=== PATIENT | female | born 1995 | race Caucasian/White ===

== ENCOUNTER → 2017-05-30 | Outpatient (CLI) | payer OTHER ==
[~2017-05-30] MED LIST: ASPI-691 PO; DESV50TA PO; LEVO50TA5 PO; NORG1TAB7 PO; OMEP40CA6 PO; PANT20TA2 PO; TOPI25TA32 PO; VENL75CA PO
[2017-05-30 13:13] LABS: EPI LOT# 5695218
[2017-05-30 13:15] LABS: PATH.CAST-FLAG NOT PRESENT; SPERM-FLAG NOT PRESENT; SRC-FLAG NOT PRESENT; XTAL-FLAG NOT PRESENT; YLC-FLAG NOT PRESENT
[2017-05-30 13:20] LABS: HCT (PFA) 40.3 % (34.6-47.8); HEMATOCRIT 40.5 % (34.6-47.8); HEMOGLOBIN 13.6 g/dL (11.7-16.4); PLATELET (PFA) 208 x10^3/uL (130-400)
[2017-05-30 13:31] LABS: ASPARTATE AMINO TRANSFERASE 13 U/L (15-37); BLOOD UREA NITROGEN 13 mg/dL (7-18)
[2017-05-30 14:52] LABS: EPI CARTRIDGE 133 SECONDS (72-193)
== END | disposition home or self-care (01) ==
LOC: STAR 12:04
PROVIDERS: ATTEND Neurological Surgery
DX: Z01.818 Encounter for other preprocedural examination (principal); G93.5 Compression of brain; R79.1 Abnormal coagulation profile; R82.99 Other abnormal findings in urine
CPT/HCPCS: 36415; 71020; 80053; 81001; 85014; 85025; 85049; 85576; 85610; 85730; 87086; 93005

== ENCOUNTER 2017-06-12 09:04 | Inpatient (IN) | payer OTHER ==
[~2017-06-12] VITALS: Ht 147.3 cm; Wt 78.9 kg
[~2017-06-12 09:04] MED LIST changes: +REMIFENTANIL 2 MG ONE
[2017-06-12 09:31] VITALS: BP 138/87
[2017-06-12] MEDS ORDERED: LACTATED RINGERS 1,000 ML IV SCH (09:35)
[2017-06-12] MEDS ORDERED: LIDOCAINE 1%, 2ML ONE (09:40)
[2017-06-12 09:43] LABS: HCG UR LOT HCG7030192
[2017-06-12 09:51] LABS: HCG UR OBC PASS
[2017-06-12] MEDS ORDERED: LIDOCAINE 1%, 2ML SQ PRN (10:00)
[2017-06-12] MEDS ORDERED: BUPIVACAINE/PF 0.5% ONE (10:14)
[2017-06-12] MEDS ORDERED: THROMBIN 20,000 UNIT VIAL TP ONE (10:14)
[2017-06-12] MEDS ORDERED: EPINEPHRINE 1 MG/ML, 1ML ONE (10:14)
[2017-06-12] MEDS ORDERED: CEFUROXIME 1.5 GM ONE (10:14)
[2017-06-12] MEDS ORDERED: BACITRACIN 50,000 UNIT ONE (10:15)
[2017-06-12] MEDS ORDERED: FLU VACC QS2017-18 (36MOS+) UP/PF 0.5 ML IM-VACC ONE (10:30)
[2017-06-12] MEDS ORDERED: MIDAZOLAM 1 MG/ML, 2ML ONE (10:42)
[2017-06-12] MEDS ORDERED: PROPOFOL 50 ML ONE (11:33)
[2017-06-12] MEDS ORDERED: HYDROcodone/APAP 7.5-325MG/15ML UDC PO PRN (12:00)
[2017-06-12] MEDS ORDERED: hydrALAzine 20 MG/ML, 1ML IV PRN ×2 (12:00→17:00)
[2017-06-12] MEDS ORDERED: ONDANSETRON 2MG/ML, 2ML IVPush PRN (12:00)
[2017-06-12] MEDS ORDERED: LABETALOL 5MG/ML, 20ML IV PRN ×2 (12:00→17:00)
[2017-06-12] MEDS ORDERED: PROMETHAZINE 25 MG/ML, 1ML IV PRN (12:00)
[2017-06-12] MEDS ORDERED: OXYcodone 5 MG/5 ML ORAL.SOL UDC PO PRN (12:00)
[2017-06-12] MEDS ORDERED: FENTANYL PF 100 MCG/2ML ONE ×3 (13:04→14:19)
[2017-06-12] MEDS ORDERED: NEOSPORIN OINT, 15GM ONE (13:17)
[2017-06-12] MEDS ORDERED: HYDROmorphone 1 MG/ML, 1ML ONE ×2 (14:19→15:10)
[2017-06-12] MEDS: FENTANYL PF 100 MCG/2ML IV PRN ×2 (14:20→15:00)
[2017-06-12] MEDS ORDERED: OXYcodone 5 MG/5 ML ORAL.SOL UDC ONE (14:20)
[2017-06-12] MEDS: HYDROmorphone 1 MG/ML, 1ML IV PRN ×3 (14:24→15:11)
[2017-06-12] MEDS ORDERED: METOPROLOL 1 MG/ML, 5ML ONE (14:56)
[2017-06-12] MEDS ORDERED: METOPROLOL 1 MG/ML, 5ML IVPush ONE (15:00)
[2017-06-12] MEDS ORDERED: PHENYLEPHRINE 10 MG/ML ONE (16:12)
[2017-06-12] MEDS ORDERED: ROCURONIUM 10 MG/ML ONE (16:12)
[2017-06-12] MEDS ORDERED: SUCCINYLCHOLINE 20 MG/ML, 10ML ONE (16:12)
[2017-06-12] MEDS ORDERED: DEXAMETHASONE 4 MG/ML, 1ML ONE (16:12)
[2017-06-12] MEDS ORDERED: ONDANSETRON 2MG/ML, 2ML ONE (16:12)
[2017-06-12] MEDS: HYDROmorphone 2 MG/ML, 1ML IV PRN ×2 (16:57→23:05)
[2017-06-12] MEDS ORDERED: CYCLOBENZAPRINE 10 MG TABLET PO PRN (17:00)
[2017-06-12] MEDS ORDERED: ACETAMINOPHEN 325 MG TABLET PO PRN (17:00)
[2017-06-12] MEDS ORDERED: ACETAMINOPHEN 650 MG SUPP PR PRN (17:00)
[2017-06-12] MEDS ORDERED: DIAZEPAM 5 MG TABLET PO PRN (17:00)
[2017-06-12] MEDS ORDERED: BISACODYL 10 MG SUPP PR PRN (17:00)
[2017-06-12] MEDS ORDERED: ENALAPRILAT 1.25 MG/ML, 2ML IV PRN (17:00)
[2017-06-12] MEDS: DEXAMETHASONE 4 MG/ML, 1ML IV SCH ×2 (17:36→22:46)
[2017-06-12] MEDS: OXYcodone/APAP 5/325MG TABLET PO PRN ×2 (19:30→20:27)
[2017-06-12] MEDS: NS + 20MEQ KCL 1,000 ML IV SCH (19:36)
[2017-06-12] MEDS: CEFUROXIME 1.5 GM in SODIUM CHLORIDE 0.9% 50 ML IVPB SCH (20:04)
[2017-06-13] MEDS: OXYcodone/APAP 5/325MG TABLET PO PRN ×5 (02:18→21:51)
[2017-06-13] MEDS: CEFUROXIME 1.5 GM in SODIUM CHLORIDE 0.9% 50 ML IVPB SCH (04:06)
[2017-06-13 04:28] LABS: HEMATOCRIT 39.7 % (34.6-47.8); HEMOGLOBIN 13.2 g/dL (11.7-16.4); WHITE BLOOD COUNT 15.9 x10^3/uL (3.4-10)
[2017-06-13 04:35] LABS: BLOOD UREA NITROGEN 7 mg/dL (7-18)
[2017-06-13] MEDS: LEVOTHYROXINE 25 MCG TABLET PO SCH (05:06)
[2017-06-13] MEDS: DEXAMETHASONE 4 MG/ML, 1ML IV SCH ×2 (05:06→11:32)
[2017-06-13] MEDS: PRISTIQ 50 MG PO SCH (07:58)
[2017-06-13] MEDS: TRI SPRINTEC PO SCH (07:58)
[2017-06-13] MEDS: OMEPRAZOLE 20 MG CAPSULE.DR PO SCH (08:05)
[2017-06-13] MEDS: ACYCLOVIR OINT 5%, 5GM TP SCH ×5 (09:00→21:00)
[2017-06-13] MEDS ORDERED: SENNA/DOCUSATE TABLET PO SCH (09:00)
[2017-06-13] MEDS: ONDANSETRON 2MG/ML, 2ML IV PRN (10:15)
[2017-06-13] MEDS: NS + 20MEQ KCL 1,000 ML IV SCH (10:28)
[2017-06-13 11:35] VITALS: BP 127/83
[2017-06-13 19:45] VITALS: BP 114/76
[2017-06-13 21:05] LABS: PATH.CAST-FLAG NOT PRESENT; SPERM-FLAG NOT PRESENT; SRC-FLAG NOT PRESENT; XTAL-FLAG NOT PRESENT; YLC-FLAG NOT PRESENT
[2017-06-14] VITALS: BP 113/70
[2017-06-14] MEDS: OXYcodone/APAP 5/325MG TABLET PO PRN ×5 (01:48→20:02)
[2017-06-14] MEDS: NS + 20MEQ KCL 1,000 ML IV SCH ×2 (01:49→17:51)
[2017-06-14 04:00] VITALS: BP 109/71
[2017-06-14] MEDS: ACYCLOVIR OINT 5%, 5GM TP SCH ×5 (05:58→20:41)
[2017-06-14 06:02] LABS: HEMATOCRIT 32.6 % (34.6-47.8); HEMOGLOBIN 10.8 g/dL (11.7-16.4)
[2017-06-14 06:11] LABS: BLOOD UREA NITROGEN 11 mg/dL (7-18)
[2017-06-14] MEDS: LEVOTHYROXINE 25 MCG TABLET PO SCH (06:38)
[2017-06-14] MEDS: PRISTIQ 50 MG PO SCH (09:00)
[2017-06-14] MEDS: TRI SPRINTEC PO SCH (09:00)
[2017-06-14 09:38] VITALS: BP 119/79
[2017-06-14] MEDS: OMEPRAZOLE 20 MG CAPSULE.DR PO SCH (09:42)
[2017-06-14] MEDS: SENNA/DOCUSATE TABLET PO SCH (09:43)
[2017-06-14 11:36] VITALS: BP 118/80
[2017-06-14] MEDS: ONDANSETRON 2MG/ML, 2ML IV PRN ×2 (11:47→18:07)
[2017-06-14] MEDS: morphine SULFATE 10 MG/ML, 1ML IV PRN ×2 (11:47→18:03)
[2017-06-14 20:06] VITALS: BP 119/81
[2017-06-15] MEDS: OXYcodone/APAP 5/325MG TABLET PO PRN ×3 (00:08→09:31)
[2017-06-15 02:00] VITALS: BP 120/76
[2017-06-15 04:28] VITALS: BP 116/78
[2017-06-15 04:46] LABS: HEMATOCRIT 32.2 % (34.6-47.8); HEMOGLOBIN 10.8 g/dL (11.7-16.4); WHITE BLOOD COUNT 11.6 x10^3/uL (3.4-10)
[2017-06-15 04:52] LABS: BLOOD UREA NITROGEN 8 mg/dL (7-18)
[2017-06-15] MEDS: ACYCLOVIR OINT 5%, 5GM TP SCH (06:00)
[2017-06-15] MEDS: LEVOTHYROXINE 25 MCG TABLET PO SCH (06:13)
[2017-06-15] MEDS: NS + 20MEQ KCL 1,000 ML IV SCH (06:30)
[2017-06-15] MEDS: OMEPRAZOLE 20 MG CAPSULE.DR PO SCH (07:53)
[2017-06-15] MEDS ORDERED: ONDA4TAB7 PO (08:06)
[2017-06-15] MEDS ORDERED: OXYC-293 PO (08:08)
[2017-06-15] MEDS ORDERED: SENN1TAB68 PO (08:13)
[2017-06-15] MEDS: TRI SPRINTEC PO SCH (09:00)
[2017-06-15] MEDS: PRISTIQ 50 MG PO SCH (09:00)
[2017-06-15] MEDS: SENNA/DOCUSATE TABLET PO SCH (09:31)
== END 2017-06-15 09:45 | disposition home or self-care (01) | DRG 27 ==
LOC: ORIP 09:04 → CCU 15:46 → 4NOR 06-13 11:16
PROVIDERS: ADMIT Neurological Surgery; ATTEND Neurological Surgery
PROC: 00NC0ZZ Release Cerebellum, Open Approach (ICD-10-PCS; principal; 2017-06-12 12:30)
PROC: 00U207Z Supplement Dura Mater with Autologous Tissue Substitute, Open Approach (ICD-10-PCS; 2017-06-12 12:30)
DX: G93.5 Compression of brain (principal); F32.9 Major depressive disorder, single episode, unspecified; K21.9 Gastro-esophageal reflux disease without esophagitis; G43.909 Migraine, unspecified, not intractable, without status migrainosus; G40.909 Epilepsy, unspecified, not intractable, without status epilepticus; Z88.2 Allergy status to sulfonamides; Z88.8 Allergy status to other drugs, medicaments and biological substances; Z91.048 Other nonmedicinal substance allergy status; Z90.89 Acquired absence of other organs; Z83.3 Family history of diabetes mellitus; Z82.61 Family history of arthritis; Z82.49 Family history of ischemic heart disease and other diseases of the circulatory system; Z80.6 Family history of leukemia; Z80.9 Family history of malignant neoplasm, unspecified; Z23 Encounter for immunization
CPT/HCPCS: 36415; 80048; 81001; 81025; 85025; 86850; 86900; 87081; 87086; 90686; C1713; J0171; J0697; J1100; J1170; J2250; J2405; J2704; J3010; J3480; J3490; J0330; J2270; J2370; J7120

== ENCOUNTER → 2018-03-26 | Outpatient (CLI) | payer OTHER ==
[~2018-03-26] MED LIST changes: +ONDA4TAB7 PO; +OXYC-293 PO; -REMIFENTANIL 2 MG ONE; +SENN1TAB68 PO
[2018-03-26 12:18] LABS: BASOPHILS # (AUTO) 0.05 x10^3/uL (0-0.1); BASOPHILS % (AUTO) 1 % (0-1); EOSINOPHILS % (AUTO) 1 % (1-7); LYMPHOCYTES # (AUTO) 3.47 x10^3/uL (1-3.4); LYMPHOCYTES % (AUTO) 32 % (22-44); MD NO; MEAN CORPUSCULAR HGB CONC 33.3 g/dL (32.4-35.8); MEAN PLATELET VOLUME 9.7 fL (7.4-10.4); MONOCYTES % (AUTO) 5 % (2-9); NEUTROPHILS # (AUTO) 6.64 x10^3/uL (1.8-6.8); NEUTROPHILS % (AUTO) 62 % (42-75); PLATELET COUNT 238 x10^3/uL (130-400); RED BLOOD COUNT 5.28 x10^6/uL (3.82-5.3); RED CELL DISTRIBUTION WIDTH 13.9 % (9.6-15.2)
[2018-03-26 12:31] LABS: CHLORIDE 106 mmol/L (98-107)
[2018-03-26 12:42] LABS: HEMOGLOBIN A1C 5.5 % (4.2-6.3)
[2018-03-26 13:10] LABS: % IRON SATURATION 7 % (20-55); ALANINE AMINOTRANSFERASE 39 U/L (12-78); ALBUMIN 3.6 g/dL (3.4-5.0); ALKALINE PHOSPHATASE 125 U/L (45-117); ANION GAP 10 mmol/L (5-15); BILIRUBIN,TOTAL 0.4 mg/dL (0.2-1.0); CALCIUM 9.3 mg/dL (8.5-10.1); CHOL/HDL RATIO 3.8; CHOLESTEROL, TOTAL 240 mg/dL (140-239); CREATININE 0.86 mg/dL (0.55-1.02); HDL CHOL % 26 % (28-40); HDL CHOLESTEROL (DIRECT) 63 mg/dL (40-60); IRON LEVEL 32 mcg/dL (50-170); LDL CHOLESTEROL,CALCULATED 136 mg/dL (54-169); LDL/HDL RATIO 2.2 (0.5-3.0); MICROSCOPIC INDICATED; TOTAL IRON BINDING CAPACITY 484 mcg/dL (250-450); TOTAL PROTEIN 8.6 g/dL (6.4-8.2); TRIGLYCERIDES 205 mg/dL (50-200); VLDL CHOLESTEROL 41 mg/dL (0-25)
[2018-03-26 14:12] LABS: CULTURE INDICATED? YES
== END | disposition home or self-care (01) ==
LOC: LAB 11:38
PROVIDERS: ATTEND Nurse Practitioner Family
DX: D50.9 Iron deficiency anemia, unspecified (principal); D72.829 Elevated white blood cell count, unspecified; D75.89 Other specified diseases of blood and blood-forming organs; G40.909 Epilepsy, unspecified, not intractable, without status epilepticus; N92.0 Excessive and frequent menstruation with regular cycle; E78.2 Mixed hyperlipidemia; E55.9 Vitamin D deficiency, unspecified; R30.0 Dysuria; R00.0 Tachycardia, unspecified; R73.01 Impaired fasting glucose; M25.50 Pain in unspecified joint; M79.1 Myalgia; E03.9 Hypothyroidism, unspecified
CPT/HCPCS: 36415; 80053; 80061; 81001; 82306; 82607; 82728; 83036; 83540; 83550; 83970; 84144; 84550; 85025; 86337; 87086